=== PATIENT | male | born 1940 | race Caucasian/White ===

== ENCOUNTER → 2016-05-19 | Outpatient (CLI) | payer MEDICARE | LOC: CT 08:30 | DX: R16.0 Hepatomegaly, not elsewhere classified (principal); R91.1 Solitary pulmonary nodule; N40.2 Nodular prostate without lower urinary tract symptoms | CPT/HCPCS: 36415; 71250; 82565; 84520; J7050; Q9965 ==

== ENCOUNTER → 2016-07-09 | Outpatient (CLI) | payer MEDICARE ==
[2016-07-09 10:08] LABS: BUN/CREATININE RATIO 22 (0-10)
== END ==
LOC: LAB 09:08
PROVIDERS: Internal Medicine Clinical Cardiac Electrophysiology
DX: Z51.81 Encounter for therapeutic drug level monitoring (principal); Z86.79 Personal history of other diseases of the circulatory system; Z79.899 Other long term (current) drug therapy
CPT/HCPCS: 80053; 84443

== ENCOUNTER → 2021-05-09 | Outpatient (CLI) | payer MEDICARE ==
[2021-05-09 12:33] LABS: BUN/CREATININE RATIO 20 (0-10)
== END ==
LOC: ECHO 05-03 13:15
PROVIDERS: Internal Medicine
DX: Z79.899 Other long term (current) drug therapy (principal); I08.3 Combined rheumatic disorders of mitral, aortic and tricuspid valves
CPT/HCPCS: ECHO; 36415; 80053; 84439; 84443; 93306